=== PATIENT | male | born 1955 | race Caucasian/White ===

== ENCOUNTER 2016-08-14 09:37 | Day surgery (SDC) | payer OTHER ==
[~2016-08-14] VITALS: Ht 175.3 cm; Wt 103.8 kg
[~2016-08-14 09:37] MED LIST: AMLO-147 PO; ASPI-664 PO; GABA-526 PO; HYD25 PO; INSU100C SC; LANT3I SC; METO100T13 PO; PRAV40TA76 PO
[2016-08-14] MEDS ORDERED: DOXAZOSIN MESYLATE (09:57)
[2016-08-14] MEDS ORDERED: PRAVASTATIN SODIUM (09:57)
[2016-08-14] MEDS ORDERED: ASPIRIN (09:57)
[2016-08-14] MEDS ORDERED: LYRICA (09:57)
[2016-08-14] MEDS ORDERED: LISINOPRIL (09:57)
[2016-08-14] MEDS ORDERED: METOPROLOL (09:57)
[2016-08-14] MEDS ORDERED: REPAGLINIDE (09:57)
[2016-08-14] MEDS ORDERED: TOUJEO SOLOSTAR (09:57)
[2016-08-14 10:00] VITALS: Ht 175.3 cm; Wt 103.8 kg
[2016-08-14 10:21] VITALS: BP 111/65; PULSE 58; RESP 18
[2016-08-14 11:05] VITALS: BP 93/58; PULSE 56; RESP 19
[2016-08-14] MEDS ORDERED: MIDAZOLAM 1 MG/ML 2 ML INJ ONE ×2 (11:14)
[2016-08-14] MEDS ORDERED: FENTAnyl 50 MCG/ML VIAL ONE (11:14)
--- NOTE | 2016-08-15 02:56 | GILP ---
DATE OF PROCEDURE: PROCEDURE: Colonoscopy. PREOPERATIVE DIAGNOSIS: Patient presenting with history of no significant GI problems. This is a s creening colonoscopy to rule out colon polyps. POSTOPERATIVE DIAGNOSES: Moderate degree of diverticulosis. No polyps, no carcinoma noted. Minima l external hemorrhoids were noted. DESCRIPTION OF PROCEDURE: After the informed written consent was obtained, the patient was asked to lie on the left lateral side. Intravenous anesthesia was given, which included 3 mg of Versed and 50 mcg of fentanyl. When the patient became somnolent, the Olympus video colonoscope was introduced into the rectum and scope was advanced all the way to the cecum. The entire colon appeared perfect ly normal with no mucosal abnormality except a moderate degree of diverticulosis. They are small in size. No bleeding noted. Endoscope was withdrawn and on the way out, minimal external hemorrhoids were noted and the procedure was terminated. Dictated By: SUDHA NESS/SAIGE Conf#: [id number] DID#: [id number] CC: Davion Vernon;*EndCC*
== END 2016-08-14 11:11 | disposition home or self-care (01) ==
LOC: GIL 09:37
PROVIDERS: ATTEND Internal Medicine Gastroenterology
DX: Z12.11 Encounter for screening for malignant neoplasm of colon (principal); K57.90 Diverticulosis of intestine, part unspecified, without perforation or abscess without bleeding; I10 Essential (primary) hypertension; E11.9 Type 2 diabetes mellitus without complications
CPT/HCPCS: 45378; J2250; J3010

== ENCOUNTER 2018-10-15 15:26 | Inpatient (IN) | payer OTHER ==
[~2018-10-15] VITALS: Ht 175.3 cm; Wt 94.0 kg
[~2018-10-15 15:26] MED LIST changes: -AMLO-147 PO; -ASPI-664 PO; +ASPIRIN; +DOXAZOSIN MESYLATE; -GABA-526 PO; -HYD25 PO; -INSU100C SC; -LANT3I SC; +LISINOPRIL; +LYRICA; -METO100T13 PO; +METOPROLOL; -PRAV40TA76 PO; +PRAVASTATIN SODIUM; +REPAGLINIDE; +TOUJEO SOLOSTAR
--- NOTE | 2018-10-15 18:06 | ERD ---
ER Documentation Chief Complaint Chief Complaint right 2nd toe diabetic ulcer/abcess? HPI The patient is a 62-year-old male with past medical history of diabetes mellitus, diabetic neuropathy, chronic foot wound, hypertension, hyperlipidemia who presents to the emergency department sent in by his straight line press setter Dr.n Hathaway for worsening right toe infection. The patient has a chronic right foot wound of his second digit. He has had dbridements and I&D by his straight line press setter. The wound is worsening ROS All systems reviewed and are negative except as per history of present illness. Medications Home Meds Active Scripts Lactobacillus Rhamnosus* (Culturelle*) 1 Each Cap.sprink, 1 CAP PO BID, #84 CAP Prov:KATEFARRAH Benítez 10/17/18 Amoxicillin* (Amoxicillin*) 500 Mg Cap, 500 MG PO Q8, #120 CAP Prov:KATEFARRAH 10/17/18 Vancomycin/0.9 % Sod Chloride (Vanco 1.5 gm/150 ml-0.9% NaCl) 1.5 Gm/150 Ml Plast..bag, 1.5 GM IV Q24H for 40 Days Prov:KATEFARRAH Benítez 10/17/18 [Vancomycin Iv Per Pharmacy] 1 EA EACH No Conflict Check, 0 EA XX .PER PROTOCOL for 40 Days please do weekly CBC and BMP and fax results to Dr Hathaway . Results may also be reviewed with Patient's PCP Prov:ELANA LOVEWILLIAM Lopez. 10/17/18 Reported Medications Repaglinide* (Repaglinide*) 2 Mg Tablet, 2 MG PO TID for 30 Days, #90 TAKE 1 TABLET BY MOUTH THREE TIMES A DAY WITH MEALS 10/15/18 Pravastatin Sodium* (Pravastatin Sodium*) 40 Mg Tablet, 40 MG PO QHS for 90 Days, #90 TAKE 1 TABLET BY MOUTH AT BEDTIME; 10/15/18 Doxazosin Mesylate* (Doxazosin Mesylate*) 8 Mg Tablet, 8 MG PO DAILY for 90 Days, #90 TAKE 1 TABLET EVERY DAY 10/15/18 Gabapentin* (Gabapentin*) 800 Mg Tablet, 1600 MG PO QHS TAKE 2 TABLETS BY MOUTH AT BEDTIME 10/15/18 Nortriptyline Hcl* (Nortriptyline Hcl*) 50 Mg Capsule, 50 MG PO QHS, TAB 10/15/18 Insulin Glargine,Hum.rec.anlog (Basaglar Kwikpen U-100) 100 Unit/1 Ml Insuln.pen, 50 UNIT SQ QHS INJECT 50 UNITS SUBCUTANEOUSLY EVERY DAY 10/15/18 Aspirin Delayed Release (Aspirin Delayed Release) 81 Mg Tablet.dr, 81 MG PO DAILY for 90 Days, #90 TAKE ONE TABLET ONCE A DAY ORALLY ONCE A DAY 10/15/18 Metoprolol Tartrate* (Lopressor*) 50 Mg Tab, 100 MG PO DAILY for 90 Days, #180 TAKE 1 TABLET BY MOUTH TWICE A DAY 10/15/18 Lisinopril* (Lisinopril*) 40 Mg Tablet, 40 MG PO DAILY for 90 Days, #90 TAKE 1 TABLET BY MOUTH EVERY DAY 10/15/18 Discontinued Reported Medications [Repaglinide] No Conflict Check 08/14/16 [Pravastatin Sodium] No Conflict Check 08/14/16 [Doxazosin Mesylate] No Conflict Check 08/14/16 [Toujeo Solostar] No Conflict Check 08/14/16 [Lyrica] No Conflict Check 08/14/16 [Aspirin] No Conflict Check 08/14/16 [Lisinopril] No Conflict Check 08/14/16 [Metoprolol] No Conflict Check 08/14/16 Allergies Allergies: Coded Allergies: No Known Drug Allergies (Unverified Allergy, Unknown, 10/15/18) PMhx/Soc History of Surgery: No Anesthesia Reaction: No Hx Neurological Disorder: No (NEUROPATHY) Hx Respiratory Disorders: No Hx Cardiac Disorders: Yes (HTN, HYPERLIPIDEMIA) Hx Psychiatric Problems: No Hx Miscellaneous Medical Probl: No Hx Alcohol Use: No Hx Substance Use: No Hx Tobacco Use: No Physical Exam Vitals Physical Exam Const: No acute distress. Head: Atraumatic. Eyes: Normal Conjunctiva. ENT: Normal External Ears, Nose and Mouth. Neck: Full range of motion. No meningismus. Resp: Clear to auscultation bilaterally. Cardio: Regular rate and rhythm. Abd: Soft, non distended, normal bowel sounds, non tender. Skin: No petechiae or rashes. Back: No midline or flank tenderness. Ext: The right second toe is edematous/erythematous with bloody discharge Neur: Awake and alert. No focal deficit Psych: Normal Mood and Affect. Result Diagram: 10/17/18 0802 10/17/18 0802 Results 24 hrs Laboratory Tests Test 10/15/18 19:07 White Blood Count 9.0 10^3/ul Red Blood Count 4.34 10^6/ul Hemoglobin 13.9 g/dl Hematocrit 41.8 % Mean Corpuscular Volume 96.3 fl Mean Corpuscular Hemoglobin 32.0 pg Mean Corpuscular Hemoglobin Concent 33.3 g/dl Red Cell Distribution Width 11.8 % Platelet Count 257 10^3/UL Mean Platelet Volume 9.4 fl Immature Granulocytes % 0.600 % Neutrophils % 72.3 % Lymphocytes % 14.3 % Monocytes % 10.6 % Eosinophils % 1.6 % Basophils % 0.6 % Nucleated Red Blood Cells % 0.0 /100WBC Immature Granulocytes # 0.050 10^3/ul Neutrophils # 6.5 10^3/ul Lymphocytes # 1.3 10^3/ul Monocytes # 1.0 10^3/ul Eosinophils # 0.1 10^3/ul Basophils # 0.1 10^3/ul Nucleated Red Blood Cells # 0.0 10^3/ul Erythrocyte Sedimentation Rate 41 mm/Hr Sodium Level 138 mmol/L Potassium Level 4.2 mmol/L Chloride Level 103 mmol/L Carbon Dioxide Level 26 mmol/L Anion Gap 9 Blood Urea Nitrogen 45 mg/dl Creatinine 1.69 mg/dl Est Glomerular Filtrat Rate mL/min 41 mL/min Glucose Level 190 mg/dl Calcium Level 9.2 mg/dl Total Bilirubin 0.0 mg/dl Direct Bilirubin 0.00 mg/dl Aspartate Amino Transf (AST/SGOT) 71 IU/L Alanine Aminotransferase (ALT/SGPT) 37 IU/L Alkaline Phosphatase 51 IU/L Total Protein 8.0 g/dl Albumin 4.2 g/dl Procedures/[place] [address] Radiology Main Line: [phone] DIAGNOSTIC IMAGING REPORT Patient: GUERO TRAN : 1955 Age: 62 Sex: M MR #: [id number] DOS: 10/15/18 1829 Ordering MD: ADRIANNE CERDA MD Location: E/R Room/Bed: PROCEDURE: XR Foot. CLINICAL INDICATION: pain TECHNIQUE: AP, lateral and oblique views of the right foot was obtained. The images were reviewed on a PACS workstation. COMPARISON: None. FINDINGS: There is an avulsion fracture in the region of the base of the distal phalanx of the second digit. There is associated soft tissue swelling. There is no significant joint space narrowing. Bone mineralization is normal. RPTAT: AA IMPRESSION: Avulsion fracture in the region of the base of the distal phalanx of the second digit with associated soft tissue swelling. The fracture involves the articular surface. .Morgan Lui MD, MD Date Time Electronically viewed and signed by .Morgan Lui MD, on 10/15/2018 19:17 .S/ CC: ADRIANNE CERDA MD [phone] MEDICAL MAKING DECISION: The patient is a 62-year-old male, presenting with right second toe infection and fracture. He was treated with IV antibiotic The differential diagnoses considered include but are not limited to cellulitis, abscess, gangrene, osteomyelitis Departure Diagnosis: Primary Impression: Diabetic ulcer of right foot Additional Impressions: Toe fracture, right Anemia CKD (chronic kidney disease) Condition: Stable Comments I discussed the findings with the patient. I discussed the patient with Dr Cornell , who was made aware of the lab, the treatment, the patient condition. The patient is admitted to [facility] Disclaimer: Inadvertent spelling and grammatical errors are likely due to EHR/dictation software use and do not reflect on the overall quality of patient care. Also, please note that the electronic time recorded on this note does not necessarily reflect the actual time of the patient encounter. ADRIANNE CERDA MD October 15, 2018 18:06
[2018-10-15] MEDS ORDERED: PIPER-TAZO 3.375 GM IV (PMX) 100 ML IVPB ONE (20:00)
[2018-10-15] MEDS ORDERED: VANCOMYCIN 1 GM (PMX) 250 ML IVPB ONE (20:00)
--- NOTE | 2018-10-15 20:53 | HP ---
Date/Time of Note Date/Time of Note DATE: 10/15/18 TIME: 20:53 Assessment/Plan VTE Prophylaxis SCD applied (from Nsg): Yes (Lower extremity) Pharmacological prophylaxis: NA/contraindicated Pharm contraindication: low risk/ambulating Lines/Catheters IV Catheter Type (from Nrsg): Saline Lock Assessment/Plan Hospital Course This is a 62-year-old male being admitted to the [facility] floor for: #1 right second digit infection/fracture: x-ray of the foot shows:Avulsion fracture in the region of the base of the distal phalanx of the second digit with associated soft tissue swelling. The fracture involves the articular surface. Based on the chronicity and appearance of his right toe there is suspicion for possible underlying infection. Will check an MRI to further evaluate. In the meantime we will initiate the patient on vancomycin and Zosyn. Await evaluation from podiatry . We will also order venous and arterial Dopplers bilaterally lower extremities to assess vascularity. #2 chronic right foot wound: Wound care consult, await podiatry recs. Await MRI result. Antibiotics. #3 diabetes mellitus: We will resume patient's home Lantus, insulin sliding scale, check hemoglobin A1c #4 Acute kidney injury versus acute on chronic kidney injury: Did not have a baseline creatinine. Possibly secondary to SINDY inhibitor. Will hold SINDY inhibitor at the current time. Will hydrate the patient with normal saline. renally dose abx. Will monitor renal function. Avoid nephrotoxic agents. Consider nephrology consultation if indicated. Resume SINDY inhibitor once baseline is established. #5 hypertension: Resume patient's home blood pressure medications #6 hyperlipidemia: Check lipid panel, continue statin #7 DVT GI prophylaxis: SCDs to the left lower extremity, no GI prophylaxis indicated Further treatment strategy will be implemented as per the clinical course. Result Diagram: 10/15/18190610/15/187 Results 24hrs Laboratory Tests Test 10/15/18 19:07 White Blood Count 9.0 Red Blood Count 4.34 L Hemoglobin 13.9 L Hematocrit 41.8 L Mean Corpuscular Volume 96.3 Mean Corpuscular Hemoglobin 32.0 Mean Corpuscular Hemoglobin Concent 33.3 Red Cell Distribution Width 11.8 Platelet Count 257 Mean Platelet Volume 9.4 Immature Granulocytes % 0.600 H Neutrophils % 72.3 Lymphocytes % 14.3 L Monocytes % 10.6 Eosinophils % 1.6 Basophils % 0.6 Nucleated Red Blood Cells % 0.0 Immature Granulocytes # 0.050 H Neutrophils # 6.5 Lymphocytes # 1.3 Monocytes # 1.0 H Eosinophils # 0.1 Basophils # 0.1 Nucleated Red Blood Cells # 0.0 Erythrocyte Sedimentation Rate 41 H Sodium Level 138 Potassium Level 4.2 Chloride Level 103 Carbon Dioxide Level 26 Anion Gap 9 Blood Urea Nitrogen 45 H Creatinine 1.69 H Est Glomerular Filtrat Rate mL/min 41 L Glucose Level 190 Calcium Level 9.2 HPI/ROS Admit Date/Time Admit Date/Time Hx of Present Illness Chief complaint: Chronic right second toe infection This is a 62-year-old male with past medical history of diabetes mellitus, diabetic neuropathy, chronic foot wound, hypertension, hyperlipidemia who presents to the emergency department sent in by his nutrition internship for worsening right toe infection. Patient has a chronic right foot wound of his second digit. He has had debridements and I&D by his nutrition internship. His wounds continue to get worse. He was also told he apparently may have an abscess of his right second toe was well and was sent into the emergency department. Patient denies any pain. He denies any fevers. Allergies: NKDA Medications: See Jul Const: As per HPI Eyes : No pain discharge or redness or change in visual acuity ENT: No pain, sore throat, congestion, congestion, dysphagia or discharge Respiratory: No shortness of breath, cough, sputum, wheezing, or pleuritic pain Cardiovascular: No chest pain, palpitation, PND, or edema GI : no change in appetite, abdominal pain, nausea, vomiting, diarrhea, constipation, or change in the color his stool Genitourinary: No dysuria, hematuria, flank pain , discharge or CVA tenderness Musculoskeletal: As per HPI Skin: As per HPI Neuro: No headache, dizziness, syncope, seizure, focal weakness Endocrine: No polyuria, polydipsia, temperature intolerance Psych: No hallucination, depression, anxiety or suicidal ideation PMH/Family/Social Past Medical History Diabetes mellitus with neuropathy, chronic right foot wound tension, hyperlipidemia Medications Current Medications Vancomycin HCl 250 ml @ 125 mls/hr ONCE ONCE IVPB ; Start 10/15/18 at 20:00; Stop 10/15/18 at 21:59 IV Flush (NS 3 ml) 3 ml PER PROTOCOL IV ; Start 10/15/18 at 21:00 Ondansetron HCl (Zofran Inj) 4 mg Q6H PRN IV NAUSEA/VOMITING; Start 10/15/18 at 21:00; Status UNV Acetaminophen (Tylenol Tab) 650 mg Q6H PRN PO .PAIN 1-3 OR TEMP; Start 10/15/18 at 21:00; Status UNV Acetaminophen/ Hydrocodone Bitart ([place] (5/325)) 1 tab Q6H PRN PO .MOD PAIN 4- 6; Start 10/15/18 at 21:00; Status UNV Morphine Sulfate (morphine) 2 mg Q4H PRN IV .SEVERE PAIN 7-10; Start 10/15/18 at 21:00; Status UNV Docusate Sodium (Colace) 100 mg Q12H PRN PO .CONSTIPATION; Start 10/15/18 at 21:00; Status UNV Bisacodyl (Dulcolax) 5 mg DAILY PRN PO .CONSTIPATION; Start 10/15/18 at 21:00; Status UNV Hydralazine HCl (Apresoline) 10 mg Q4H PRN IV ELEVATED BLOOD PRESSURE; Start 10/15/18 at 21:00; Status UNV Coded Allergies: No Known Drug Allergies (Unverified Allergy, Unknown, 10/15/18) Past Surgical History Previous surgical procedure to the bilateral feet Family History Significant Family History: no pertinent family hx Social History Alcohol Use: sober Smoking Status: Never smoker Drug Use: none Exam/Review of Systems Vital Signs Vitals Vital Signs Date Temp Pulse Resp B/P (MAP) Pulse Ox O2 O2 Flow FiO2 Time Delivery Rate 10/15/18 83 19 159/82 98 Room Air 20:30 (107) 10/15/18 98.1 15:30 Exam Exam General: She is a pleasant male currently lying in bed in no acute distress HEENT: Atraumatic, normocephalic. The pupils are equal, round and reactive. Extraocular motor are intact Neck: Supple with full range of motion. No rigidity or meningismus Chest: Nontender Lungs: Clear to auscultation bilaterally no crackles rales or wheezing Heart: Normal S1-S2, Regular rhythm and rate. Abdomen: Obese, soft , nontender, nondistended , bowel sounds are present. No guarding no rebound tenderness , No masses or organomegaly. No costovertebral temporal angle mass Extremities: Right foot second digit: Circumferential wound, with dried blood Neurologic: Normal mental status, speech normal, cranial nerves II through XII are intact, motor and sensory are intact, Additional Comments PROCEDURE: XR Foot. CLINICAL INDICATION: pain TECHNIQUE: AP, lateral and oblique views of the right foot was obtained. The images were reviewed on a PACS workstation. COMPARISON: None. FINDINGS: There is an avulsion fracture in the region of the base of the distal phalanx of the second digit. There is associated soft tissue swelling. There is no significant joint space narrowing. Bone mineralization is normal. RPTAT: AA IMPRESSION: Avulsion fracture in the region of the base of the distal phalanx of the second digit with associated soft tissue swelling. The fracture involves the articular surface. .Morgan Lui MD, MD Date Time Electronically viewed and signed by .Morgan Lui MD, on 10/15/2018 19:17 .S/ CC: ADRIANNE CERDA MD [id number] YUN SHEN October 15, 2018 20:53
[2018-10-15] MEDS ORDERED: BISACODYL (EC) 5 MG TAB PO PRN (21:00)
[2018-10-15] MEDS ORDERED: hydrALAzine 20 MG INJ IV PRN (21:00)
[2018-10-15] MEDS ORDERED: NACL 0.9% 3 ML SYG IV SCH (21:00)
[2018-10-15] MEDS ORDERED: ONDANSETRON 4 MG INJ IV PRN (21:00)
[2018-10-15] MEDS ORDERED: ACETAMINOPHEN 325 MG TAB PO PRN (21:00)
[2018-10-15] MEDS ORDERED: HYDROCODONE/APAP (5/325) TAB PO PRN (21:00)
[2018-10-15] MEDS ORDERED: morphine 2 MG INJ IV PRN (21:00)
[2018-10-15] MEDS ORDERED: DOCUSATE SODIUM 100 MG CAP PO PRN (21:00)
[2018-10-15 23:33] VITALS: Ht 175.3 cm; Wt 94.0 kg
[2018-10-15] MEDS ORDERED: LISI40TA3 PO (23:54)
[2018-10-15] MEDS ORDERED: REPA2TAB8 PO (23:54)
[2018-10-15] MEDS ORDERED: PRAV40TA76 PO (23:54)
[2018-10-15] MEDS ORDERED: NORT50CA PO (23:54)
[2018-10-15] MEDS ORDERED: ASPI-1044 PO (23:54)
[2018-10-15] MEDS ORDERED: DOXA8TAB65 PO (23:54)
[2018-10-15] MEDS ORDERED: METO-429 PO (23:54)
[2018-10-15] MEDS ORDERED: GABA-528 PO (23:54)
[2018-10-15] MEDS ORDERED: INSU100I33 SQ (23:54)
[2018-10-16 00:11] VITALS: BP 165/81; PULSE 79; RESP 18
[2018-10-16 08:00] VITALS: BP 124/76; PULSE 72; RESP 18
[2018-10-16] MEDS ORDERED: VANCOMYCIN IV PER PHARMACY XX SCH (08:00)
[2018-10-16] MEDS ORDERED: LIDOCAINE 1% (MPF) 5 ML VIAL SC ONE (09:00)
[2018-10-16] MEDS ORDERED: LISINOPRIL 20 MG TAB PO SCH (09:00)
[2018-10-16] MEDS: PIPER-TAZO 3.375 GM IV (PMX) 100 ML IVPB SCH ×3 (10:22→20:08)
[2018-10-16] MEDS: METOPROLOL 50 MG TAB PO SCH (10:23)
[2018-10-16] MEDS: DOXAZOSIN 4 MG TAB PO SCH (11:57)
[2018-10-16] MEDS: VANCOMYCIN HCL 1.5 GM in SOD CHLORIDE 0.9% 250 ML IVPB SCH (11:57)
--- NOTE | 2018-10-16 12:57 | CONS ---
Assessment/Plan Assessment/Plan Hospital Course (Demo Recall) Right 2nd toe ulcer OM of right second toe Plan: Changed dressing using SSD cream gauze and cling Cont IV antibiotics [place] Reviewed all imaging studies. MRI results- OM of right 2nd toe Per podiatry pt can be discharged with PICC line of antibiotics for 6-8 weeks Will follow up with pt in the office next week Consultation Date/Type/Reason Admit Date/Time Date of Consultation: October 16, 2018 Type of Consult Podiatry consult Reason for Consultation Right 2nd toe ulcer/ OM Date/Time of Note DATE: 10/16/18 TIME: 12:44 Hx of Present Illness Pt has been following up with me for right 2nd toe ulcer. On 10/15/18 I have sent pt to ER to be admitted for possible abscess and OM of right 2nd toe. Pt was on antibiotics Past Medical History Home Meds Reported Medications Repaglinide* (Repaglinide*) 2 Mg Tablet, 2 MG PO TID for 30 Days, #90 TAKE 1 TABLET BY MOUTH THREE TIMES A DAY WITH MEALS 10/15/18 Pravastatin Sodium* (Pravastatin Sodium*) 40 Mg Tablet, 40 MG PO QHS for 90 Days, #90 TAKE 1 TABLET BY MOUTH AT BEDTIME; 10/15/18 Doxazosin Mesylate* (Doxazosin Mesylate*) 8 Mg Tablet, 8 MG PO DAILY for 90 Days, #90 TAKE 1 TABLET EVERY DAY 10/15/18 Gabapentin* (Gabapentin*) 800 Mg Tablet, 1600 MG PO QHS TAKE 2 TABLETS BY MOUTH AT BEDTIME 10/15/18 Nortriptyline Hcl* (Nortriptyline Hcl*) 50 Mg Capsule, 50 MG PO QHS, TAB 10/15/18 Insulin Glargine,Hum.rec.anlog (Basaglar Kwikpen U-100) 100 Unit/1 Ml Insuln.pen, 50 UNIT SQ QHS INJECT 50 UNITS SUBCUTANEOUSLY EVERY DAY 10/15/18 Aspirin Delayed Release (Aspirin Delayed Release) 81 Mg Tablet.dr, 81 MG PO DAILY for 90 Days, #90 TAKE ONE TABLET ONCE A DAY ORALLY ONCE A DAY 10/15/18 Metoprolol Tartrate* (Lopressor*) 50 Mg Tab, 100 MG PO DAILY for 90 Days, #180 TAKE 1 TABLET BY MOUTH TWICE A DAY 10/15/18 Lisinopril* (Lisinopril*) 40 Mg Tablet, 40 MG PO DAILY for 90 Days, #90 TAKE 1 TABLET BY MOUTH EVERY DAY 10/15/18 Discontinued Reported Medications [Repaglinide] No Conflict Check 08/14/16 [Pravastatin Sodium] No Conflict Check 08/14/16 [Doxazosin Mesylate] No Conflict Check 08/14/16 [Toujeo Solostar] No Conflict Check 08/14/16 [Lyrica] No Conflict Check 08/14/16 [Aspirin] No Conflict Check 08/14/16 [Lisinopril] No Conflict Check 08/14/16 [Metoprolol] No Conflict Check 08/14/16 Medications Current Medications IV Flush (NS 3 ml) 3 ml PER PROTOCOL IV ; Start 10/15/18 at 21:00 Ondansetron HCl (Zofran Inj) 4 mg Q6H PRN IV NAUSEA/VOMITING; Start 10/15/18 at 21:00 Acetaminophen (Tylenol Tab) 650 mg Q6H PRN PO .PAIN 1-3 OR TEMP; Start 10/15/18 at 21:00 Acetaminophen/ Hydrocodone Bitart ([place] (5/325)) 1 tab Q6H PRN PO .MOD PAIN 4- 6; Start 10/15/18 at 21:00 Morphine Sulfate (morphine) 2 mg Q4H PRN IV .SEVERE PAIN 7-10; Start 10/15/18 at 21:00 Docusate Sodium (Colace) 100 mg Q12H PRN PO .CONSTIPATION; Start 10/15/18 at 21:00 Bisacodyl (Dulcolax) 5 mg DAILY PRN PO .CONSTIPATION; Start 10/15/18 at 21:00 Hydralazine HCl (Apresoline) 10 mg Q4H PRN IV ELEVATED BLOOD PRESSURE; Start 10/15/18 at 21:00 Vancomycin HCl (Vanco Iv Per Pharmacy) VANCOMYCIN PER PHARMACY PER PROTOCOL XX ; Start 10/16/18 at 08:00 Piperacillin Sod/ Tazobactam Sod 100 ml @ 200 mls/hr Q6 IVPB Last administered on 10/16/18at 10:22; Admin Dose 200 MLS/HR; Start 10/16/18 at 09:00 Vancomycin HCl 1.5 gm/Sodium Chloride 250 ml @ 83.333 mls/ hr Q24H IVPB Last administered on 10/16/18at 11:57; Admin Dose 83.333 MLS/HR; Start 10/16/18 at 10:00 Gabapentin (Neurontin) 1,600 mg QHS PO ; Start 10/16/18 at 21:00 Insulin Glargine (Lantus) 50 units QHS SC ; Start 10/16/18 at 21:00 Metoprolol Tartrate (Lopressor) 100 mg DAILY PO Last administered on 10/16/18at 10:23; Admin Dose 100 MG; Start 10/16/18 at 09:00 Atorvastatin Calcium (Lipitor) 10 mg DAILY@21 PO ; Start 10/16/18 at 21:00 Doxazosin Mesylate (Cardura) 8 mg DAILY PO Last administered on 10/16/18at 1 1:57; Admin Dose 8 MG; Start 10/16/18 at 10:00 Nortriptyline HCl (Aventyl) 50 mg QHS PO ; Start 10/16/18 at 21:00 Allergies: Coded Allergies: No Known Drug Allergies (Unverified Allergy, Unknown, 10/15/18) Social History Alcohol Use: sober Smoking Status: Never smoker Drug Use: none Exam/Review of Systems Exam Vitals Vital Signs Date Temp Pulse Resp B/P (MAP) Pulse Ox O2 O2 Flow FiO2 Time Delivery Rate 10/16/18 98.0 72 18 124/76 94 Room Air 08:00 (92) Intake and Output 10/15/18 10/15/18 10/16/18 1414:59 22:59 06:59 IntakeIntake Total 100 ml BalanceBalance 100 ml Exam Vascular : DP/PT 1/4 B/L , CFT<3SEC all digits TG WNL Neuro- dec light touch sensation Derm- right 2nd toe erythema, edema with ulcer distal toe measuring [id number] improved since yesterday no active drainage, minimal yperkeratotic lesion overlying it. no malodor MSK- no pain on palpation of right 2nd toe Results Result Diagram: 10/16/18 0554 10/16/18 0554 Results 24hrs Laboratory Tests Test 10/15/18 19:07 10/16/18 05:54 White Blood Count 9.0 9.3 Red Blood Count 4.34 L 4.05 L Hemoglobin 13.9 L 12.9 L Hematocrit 41.8 L 39.0 L Mean Corpuscular Volume 96.3 96.3 Mean Corpuscular Hemoglobin 32.0 31.9 Mean Corpuscular Hemoglobin Concent 33.3 33.1 Red Cell Distribution Width 11.8 11.6 Platelet Count 257 249 Mean Platelet Volume 9.4 10.0 Immature Granulocytes % 0.600 H 0.600 H Neutrophils % 72.3 74.5 Lymphocytes % 14.3 L 10.5 L Monocytes % 10.6 11.8 H Eosinophils % 1.6 2.0 Basophils % 0.6 0.6 Nucleated Red Blood Cells % 0.0 0.0 Immature Granulocytes # 0.050 H 0.060 H Neutrophils # 6.5 6.9 Lymphocytes # 1.3 1.0 Monocytes # 1.0 H 1.1 H Eosinophils # 0.1 0.2 Basophils # 0.1 0.1 Nucleated Red Blood Cells # 0.0 0.0 Erythrocyte Sedimentation Rate 41 H 50 H Sodium Level 138 140 Potassium Level 4.2 4.4 Chloride Level 103 105 Carbon Dioxide Level 26 29 Anion Gap 9 6 Blood Urea Nitrogen 45 H 42 H Creatinine 1.69 H 1.62 H Est Glomerular Filtrat Rate mL/min 41 L 43 L Glucose Level 190 110 # Calcium Level 9.2 9.0 Total Bilirubin 0.0 L 0.5 Direct Bilirubin 0.00 0.00 Aspartate Amino Transf (AST/SGOT) 71 H 27 # Alanine Aminotransferase (ALT/SGPT) 37 34 Alkaline Phosphatase 51 43 Total Protein 8.0 6.9 # Albumin 4.2 3.7 Prothrombin Time 14.4 Prothrombin Time Ratio 1.1 INR International Normalized Ratio 1.11 Activated Partial Thromboplast Time 39.3 H Hemoglobin A1c 7.3 H Magnesium Level 2.2 Indirect Bilirubin 0.5 Globulin 3.20 Albumin/Globulin Ratio 1.15 Triglycerides Level 97 Cholesterol Level 111 LDL Cholesterol, Calculated 68 HDL Cholesterol 24 L Cholesterol/HDL Ratio 4.6 Thyroid Stimulating Hormone (TSH) 2.510 Medications Medication Current Medications IV Flush (NS 3 ml) 3 ml PER PROTOCOL IV ; Start 10/15/18 at 21:00 Ondansetron HCl (Zofran Inj) 4 mg Q6H PRN IV NAUSEA/VOMITING; Start 10/15/18 at 21:00 Acetaminophen (Tylenol Tab) 650 mg Q6H PRN PO .PAIN 1-3 OR TEMP; Start 10/15/18 at 21:00 Acetaminophen/ Hydrocodone Bitart ([place] (5/325)) 1 tab Q6H PRN PO .MOD PAIN 4- 6; Start 10/15/18 at 21:00 Morphine Sulfate (morphine) 2 mg Q4H PRN IV .SEVERE PAIN 7-10; Start 10/15/18 at 21:00 Docusate Sodium (Colace) 100 mg Q12H PRN PO .CONSTIPATION; Start 10/15/18 at 21:00 Bisacodyl (Dulcolax) 5 mg DAILY PRN PO .CONSTIPATION; Start 10/15/18 at 21:00 Hydralazine HCl (Apresoline) 10 mg Q4H PRN IV ELEVATED BLOOD PRESSURE; Start 10/15/18 at 21:00 Vancomycin HCl (Vanco Iv Per Pharmacy) VANCOMYCIN PER PHARMACY PER PROTOCOL XX ; Start 10/16/18 at 08:00 Piperacillin Sod/ Tazobactam Sod 100 ml @ 200 mls/hr Q6 IVPB Last administered on 10/16/18at 10:22; Admin Dose 200 MLS/HR; Start 10/16/18 at 09:00 Vancomycin HCl 1.5 gm/Sodium Chloride 250 ml @ 83.333 mls/ hr Q24H IVPB Last administered on 10/16/18at 11:57; Admin Dose 83.333 MLS/HR; Start 10/16/18 at 10:00 Gabapentin (Neurontin) 1,600 mg QHS PO ; Start 10/16/18 at 21:00 Insulin Glargine (Lantus) 50 units QHS SC ; Start 10/16/18 at 21:00 Metoprolol Tartrate (Lopressor) 100 mg DAILY PO Last administered on 10/16/18at 10:23; Admin Dose 100 MG; Start 10/16/18 at 09:00 Atorvastatin Calcium (Lipitor) 10 mg DAILY@21 PO ; Start 10/16/18 at 21:00 Doxazosin Mesylate (Cardura) 8 mg DAILY PO Last administered on 10/16/18at 11:57; Admin Dose 8 MG; Start 10/16/18 at 10:00 Nortriptyline HCl (Aventyl) 50 mg QHS PO ; Start 10/16/18 at 21:00 AMARILIS ZUNIGA DPM October 16, 2018 12:56
[2018-10-16 14:00] VITALS: BP 116/68; PULSE 78; RESP 18
--- NOTE | 2018-10-16 16:19 | PN ---
Date/Time of Note Date/Time of Note DATE: 10/16/18 TIME: 16:11 Assessment/Plan VTE Prophylaxis Risk score (from Ns)>0 risk: 3 SCD applied (from Ns): Yes (Lower extremity) Pharmacological prophylaxis: NA/contraindicated Pharm contraindication: low risk/ambulating Lines/Catheters IV Catheter Type (from Nrs): Peripheral IV Assessment/Plan Hospital Course Subjective: No new complaints, we discussed the plan of care Objective: Constitutional: alert, oriented, conversant, no distress Head: atraumatic, normocephalic Neck: non-tender, supple Respiratory: clear to auscultation Cardiovascular: regular rate and rhythm Gastrointestinal: S/ NT / ND / +BS Extremities: Right middle toe is visibly inflamed with ulcer and minimal oozing. Apparently there was some cellulitis tracking to the foot itself, but this seems to have improved, Assessment and plan: 1 AM now getting chemo 62-year-old male who was sent to us from his outpatient rn hedis office because of cellulitis and diabetic ulcer on the right second toe that seems to have failed outpatient therapy. Currently managed as follows: 1. Right second toe ulcer cellulitis with confirmed osteomyelitis per rn hedis -Patient did not do well on oral therapy so far, rn hedis is recommending intravenous therapy. -Cultures are pending -Patient is planned for central line placement today, once cultures available we will know final antibiotic regimen. 2. 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 Diabetes mellitus type 2 -Hemoglobin A1c came back 7.3 -Continue hypoglycemics and titrate as indicated 4. Dyslipidemia with low HDL: -Continue home statin 5. Hypertension: -Patient currently on good control on metoprolol and lisinopril 6. History of depression stable on nortriptyline 7. Chronic normocytic anemia: Stable no Dispo: -Patient is going to be discharged on IV antibiotics per podiatry recommenda tions, follow-up final cultures and consider ID consult for final recommendations. . Result Diagram: 10/16/18 0554 10/16/18 0554 Results 24hrs Laboratory Tests Test 10/15/18 19:07 10/16/18 05:54 White Blood Count 9.0 9.3 Red Blood Count 4.34 L 4.05 L Hemoglobin 13.9 L 12.9 L Hematocrit 41.8 L 39.0 L Mean Corpuscular Volume 96.3 96.3 Mean Corpuscular Hemoglobin 32.0 31.9 Mean Corpuscular Hemoglobin Concent 33.3 33.1 Red Cell Distribution Width 11.8 11.6 Platelet Count 257 249 Mean Platelet Volume 9.4 10.0 Immature Granulocytes % 0.600 H 0.600 H Neutrophils % 72.3 74.5 Lymphocytes % 14.3 L 10.5 L Monocytes % 10.6 11.8 H Eosinophils % 1.6 2.0 Basophils % 0.6 0.6 Nucleated Red Blood Cells % 0.0 0.0 Immature Granulocytes # 0.050 H 0.060 H Neutrophils # 6.5 6.9 Lymphocytes # 1.3 1.0 Monocytes # 1.0 H 1.1 H Eosinophils # 0.1 0.2 Basophils # 0.1 0.1 Nucleated Red Blood Cells # 0.0 0.0 Erythrocyte Sedimentation Rate 41 H 50 H Sodium Level 138 140 Potassium Level 4.2 4.4 Chloride Level 103 105 Carbon Dioxide Level 26 29 Anion Gap 9 6 Blood Urea Nitrogen 45 H 42 H Creatinine 1.69 H 1.62 H Est Glomerular Filtrat Rate mL/min 41 L 43 L Glucose Level 190 110 # Calcium Level 9.2 9.0 Total Bilirubin 0.0 L 0.5 Direct Bilirubin 0.00 0.00 Aspartate Amino Transf (AST/SGOT) 71 H 27 # Alanine Aminotransferase (ALT/SGPT) 37 34 Alkaline Phosphatase 51 43 Total Protein 8.0 6.9 # Albumin 4.2 3.7 Prothrombin Time 14.4 Prothrombin Time Ratio 1.1 INR International Normalized Ratio 1.11 Activated Partial Thromboplast Time 39.3 H Hemoglobin A1c 7.3 H Magnesium Level 2.2 Indirect Bilirubin 0.5 Globulin 3.20 Albumin/Globulin Ratio 1.15 Triglycerides Level 97 Cholesterol Level 111 LDL Cholesterol, Calculated 68 HDL Cholesterol 24 L Cholesterol/HDL Ratio 4.6 Thyroid Stimulating Hormone (TSH) 2.510 Exam/Review of Systems Exam Vitals Vital Signs Date Temp Pulse Resp B/P (MAP) Pulse Ox O2 O2 Flow FiO2 Time Delivery Rate 10/16/18 98.1 78 18 116/68 95 Room Air 14:00 (84) Intake and Output 10/15/18 10/15/18 10/16/18 1515:00 23:00 07:00 IntakeIntake Total 100 ml BalanceBalance 100 ml Results Results 24hrs Laboratory Tests Test 10/15/18 19:07 10/16/18 05:54 White Blood Count 9.0 9.3 Red Blood Count 4.34 L 4.05 L Hemoglobin 13.9 L 12.9 L Hematocrit 41.8 L 39.0 L Mean Corpuscular Volume 96.3 96.3 Mean Corpuscular Hemoglobin 32.0 31.9 Mean Corpuscular Hemoglobin Concent 33.3 33.1 Red Cell Distribution Width 11.8 11.6 Platelet Count 257 249 Mean Platelet Volume 9.4 10.0 Immature Granulocytes % 0.600 H 0.600 H Neutrophils % 72.3 74.5 Lymphocytes % 14.3 L 10.5 L Monocytes % 10.6 11.8 H Eosinophils % 1.6 2.0 Basophils % 0.6 0.6 Nucleated Red Blood Cells % 0.0 0.0 Immature Granulocytes # 0.050 H 0.060 H Neutrophils # 6.5 6.9 Lymphocytes # 1.3 1.0 Monocytes # 1.0 H 1.1 H Eosinophils # 0.1 0.2 Basophils # 0.1 0.1 Nucleated Red Blood Cells # 0.0 0.0 Erythrocyte Sedimentation Rate 41 H 50 H Sodium Level 138 140 Potassium Level 4.2 4.4 Chloride Level 103 105 Carbon Dioxide Level 26 29 Anion Gap 9 6 Blood Urea Nitrogen 45 H 42 H Creatinine 1.69 H 1.62 H Est Glomerular Filtrat Rate mL/min 41 L 43 L Glucose Level 190 110 # Calcium Level 9.2 9.0 Total Bilirubin 0.0 L 0.5 Direct Bilirubin 0.00 0.00 Aspartate Amino Transf (AST/SGOT) 71 H 27 # Alanine Aminotransferase (ALT/SGPT) 37 34 Alkaline Phosphatase 51 43 Total Protein 8.0 6.9 # Albumin 4.2 3.7 Prothrombin Time 14.4 Prothrombin Time Ratio 1.1 INR International Normalized Ratio 1.11 Activated Partial Thromboplast Time 39.3 H Hemoglobin A1c 7.3 H Magnesium Level 2.2 Indirect Bilirubin 0.5 Globulin 3.20 Albumin/Globulin Ratio 1.15 Triglycerides Level 97 Cholesterol Level 111 LDL Cholesterol, Calculated 68 HDL Cholesterol 24 L Cholesterol/HDL Ratio 4.6 Thyroid Stimulating Hormone (TSH) 2.510 Medications Medication Current Medications IV Flush (NS 3 ml) 3 ml PER PROTOCOL IV ; Start 10/15/18 at 21:00 Ondansetron HCl (Zofran Inj) 4 mg Q6H PRN IV NAUSEA/VOMITING; Start 10/15/18 at 21:00 Acetaminophen (Tylenol Tab) 650 mg Q6H PRN PO .PAIN 1-3 OR TEMP; Start 10/15/18 at 21:00 Acetaminophen/ Hydrocodone Bitart (Pelham (5/325)) 1 tab Q6H PRN PO .MOD PAIN 4- 6; Start 10/15/18 at 21:00 Morphine Sulfate (morphine) 2 mg Q4H PRN IV .SEVERE PAIN 7-10; Start 10/15/18 at 21:00 Docusate Sodium (Colace) 100 mg Q12H PRN PO .CONSTIPATION; Start 10/15/18 at 21:00 Bisacodyl (Dulcolax) 5 mg DAILY PRN PO .CONSTIPATION; Start 10/15/18 at 21:00 Hydralazine HCl (Apresoline) 10 mg Q4H PRN IV ELEVATED BLOOD PRESSURE; Start 10/15/18 at 21:00 Vancomycin HCl (Vanco Iv Per Pharmacy) VANCOMYCIN PER PHARMACY PER PROTOCOL XX ; Start 10/16/18 at 08:00 Piperacillin Sod/ Tazobactam Sod 100 ml @ 200 mls/hr Q6 IVPB Last administered on 10/16/18at 15:46; Admin Dose 200 MLS/HR; Start 10/16/18 at 09:00 Vancomycin HCl 1.5 gm/Sodium Chloride 250 ml @ 83.333 mls/ hr Q24H IVPB Last administered on 10/16/18at 11:57; Admin Dose 83.333 MLS/HR; Start 10/16/18 at 10:00 Gabapentin (Neurontin) 1,600 mg QHS PO ; Start 10/16/18 at 21:00 Insulin Glargine (Lantus) 50 units QHS SC ; Start 10/16/18 at 21:00 Metoprolol Tartrate (Lopressor) 100 mg DAILY PO Last administered on 10/16/18at 10:23; Admin Dose 100 MG; Start 10/16/18 at 09:00 Atorvastatin Calcium (Lipitor) 10 mg DAILY@21 PO ; Start 10/16/18 at 21:00 Doxazosin Mesylate (Cardura) 8 mg DAILY PO Last administered on 10/16/18at 11:57; Admin Dose 8 MG; Start 10/16/18 at 10:00 Nortriptyline HCl (Aventyl) 50 mg QHS PO ; Start 10/16/18 at 21:00 FARRAH LOVE October 16, 2018 16:18
[2018-10-16] MEDS ORDERED: GLUCOSE GEL 15 GRAM TUBE PO PRN ×2 (20:00)
[2018-10-16] MEDS ORDERED: GLUCOSE GEL 15 GRAM TUBE BUCCAL PRN (20:00)
[2018-10-16] MEDS ORDERED: GLUCAGON 1 MG INJ IM PRN (20:00)
[2018-10-16] MEDS ORDERED: DEXTROSE 50% 50 ML SYRINGE IV PRN ×2 (20:00)
[2018-10-16 20:21] VITALS: BP 140/72; PULSE 81; RESP 18
[2018-10-16] MEDS ORDERED: INSULIN GLARGINE [LANTus] (100 UNITS/ML) SYG SC SCH ×2 (21:00)
[2018-10-16] MEDS ORDERED: ATORVASTATIN 10 MG TAB PO SCH (21:00)
[2018-10-16] MEDS ORDERED: NORTRIPTYLINE 25 MG CAP PO SCH (21:00)
[2018-10-16] MEDS ORDERED: GABAPENTIN 400 MG CAP PO SCH (21:00)
[2018-10-16] MEDS ORDERED: NORTRIPTYLINE 50 MG CAP PO SCH (21:00)
[2018-10-17] MEDS: PIPER-TAZO 3.375 GM IV (PMX) 100 ML IVPB SCH ×4 (00:34→17:17)
[2018-10-17 02:32] VITALS: BP 105/54; PULSE 67; RESP 18
[2018-10-17 07:57] VITALS: BP 148/78; PULSE 69; RESP 18
[2018-10-17] MEDS: DOXAZOSIN 4 MG TAB PO SCH (08:34)
[2018-10-17] MEDS: METOPROLOL 50 MG TAB PO SCH (08:35)
[2018-10-17] MEDS: VANCOMYCIN HCL 1.5 GM in SOD CHLORIDE 0.9% 250 ML IVPB SCH (10:16)
--- NOTE | 2018-10-17 13:13 | PDOCDIS ---
Discharge Instructions CONDITION [id number] Patient Condition: [id number] Stable HOME CARE INSTRUCTIONS: [id number] Diet Instructions: [id number] Low Fat /Cholesterol [id number] Special Diet: Vzyio9y ACTIVITY: [id number] Activity Restrictions: [id number] Slowly Increase Activity Rest between Activity FOLLOW UP/APPOINTMENTS Follow-up Plan Name, Degree : Alma Hathaway DPM Specialty : Podiatry Comments Office Address : [address] [place] [address] [address] [place] [id number] Office Office * Stay in close contact wth your Art Class Model while on home IV antibiotics * You should be getting weekly labs to monitor your renal function, please make sure of this * Make sure your home health nurse notifies your PCP or director of land acquisition about your labs * See your room service runner regularly for continued wound care * Take your diabetic meds regularly and maintain a diabetic diet to facilitate good wound healing * Speak to your home health nurse or call the room service runner or your PCP if you have any further questions . FARRAH LOVE October 17, 2018 13:13
[2018-10-17] MEDS ORDERED: VANC1.5P16 IV (13:18)
[2018-10-17] MEDS ORDERED: LACT1CAP57 PO (13:18)
[2018-10-17] MEDS ORDERED: AMOX500C2 PO (13:18)
[2018-10-17] MEDS ORDERED: Vancomycin Iv Per Pharmacy XX (13:18)
--- NOTE | 2018-10-17 13:29 | DS ---
Date/Time of Note Date/Time of Note DATE: 10/17/18 TIME: 13:26 Discharge Summary Admission/Discharge Info Admit Date/Time October 15, 2018 at 19:53 Discharge Date/Time Discharge Diagnosis 62-year-old male who was sent to us from his outpatient manager metal office because of cellulitis and diabetic ulcer on the right second toe that seems to have failed outpatient therapy. Currently managed as follows: 1. Right second toe ulcer cellulitis with confirmed osteomyelitis per manager metal failed o/p tx -Patient did not do well on oral therapy so far, manager metal is recommending intravenous therapy. -Cultures grew staph aureus and alpha hemolytic strep -abx for 6 weeks and aggressive wound care 2. 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 Diabetes mellitus type 2 -Hemoglobin A1c came back 7.3 -continue regimen 4. Dyslipidemia with low HDL: -Continue home statin 5. Hypertension: -Patient currently on good control on metoprolol and lisinopril 6. History of depression stable on nortriptyline 7. Chronic normocytic anemia: Stable Patient Condition: Stable Hospital Course 62-year-old male who was sent to the hospital for inpatient work-up and IV antibiotics for cellulitis and diabetic toe ulcer that was not responding to outpatient therapy. Patient was managed for the medical problems outlined above. Once cultures came back, patient was discharged on appropriate antibiotics via oral as well as intravenous route as recommended by his manager metal. . Home Meds Active Scripts Lactobacillus Rhamnosus* (Culturelle*) 1 Each Cap.sprink, 1 CAP PO BID, #84 CAP Prov:FARRAH LOVE 10/17/18 Amoxicillin* (Amoxicillin*) 500 Mg Cap, 500 MG PO Q8, #120 CAP Prov:KATEFARRAH Benítez 10/17/18 Vancomycin/0.9 % Sod Chloride (Vanco 1.5 gm/150 ml-0.9% NaCl) 1.5 Gm/150 Ml Plast..bag, 1.5 GM IV Q24H for 40 Days Prov:KATEFARRAH Benítez 10/17/18 [Vancomycin Iv Per Pharmacy] 1 EA EACH No Conflict Check, 0 EA XX .PER PROTOCOL for 40 Days please do weekly CBC and BMP and fax results to Dr Hathaway . Results may also be reviewed with Patient's PCP Prov:KATEFARRAH Benítez 10/17/18 Reported Medications Repaglinide* (Repaglinide*) 2 Mg Tablet, 2 MG PO TID for 30 Days, #90 TAKE 1 TABLET BY MOUTH THREE TIMES A DAY WITH MEALS 10/15/18 Pravastatin Sodium* (Pravastatin Sodium*) 40 Mg Tablet, 40 MG PO QHS for 90 Days, #90 TAKE 1 TABLET BY MOUTH AT BEDTIME; 10/15/18 Doxazosin Mesylate* (Doxazosin Mesylate*) 8 Mg Tablet, 8 MG PO DAILY for 90 Days, #90 TAKE 1 TABLET EVERY DAY 10/15/18 Gabapentin* (Gabapentin*) 800 Mg Tablet, 1600 MG PO QHS TAKE 2 TABLETS BY MOUTH AT BEDTIME 10/15/18 Nortriptyline Hcl* (Nortriptyline Hcl*) 50 Mg Capsule, 50 MG PO QHS, TAB 10/15/18 Insulin Glargine,Hum.rec.anlog (Basaglar Kwikpen U-100) 100 Unit/1 Ml Insuln.pen, 50 UNIT SQ QHS INJECT 50 UNITS SUBCUTANEOUSLY EVERY DAY 10/15/18 Aspirin Delayed Release (Aspirin Delayed Release) 81 Mg Tablet.dr, 81 MG PO DAILY for 90 Days, #90 TAKE ONE TABLET ONCE A DAY ORALLY ONCE A DAY 10/15/18 Metoprolol Tartrate* (Lopressor*) 50 Mg Tab, 100 MG PO DAILY for 90 Days, #180 TAKE 1 TABLET BY MOUTH TWICE A DAY 10/15/18 Lisinopril* (Lisinopril*) 40 Mg Tablet, 40 MG PO DAILY for 90 Days, #90 TAKE 1 TABLET BY MOUTH EVERY DAY 10/15/18 Discontinued Reported Medications [Repaglinide] No Conflict Check 08/14/16 [Pravastatin Sodium] No Conflict Check 08/14/16 [Doxazosin Mesylate] No Conflict Check 08/14/16 [Toujeo Solostar] No Conflict Check 08/14/16 [Lyrica] No Conflict Check 08/14/16 [Aspirin] No Conflict Check 08/14/16 [Lisinopril] No Conflict Check 08/14/16 [Metoprolol] No Conflict Check 08/14/16 Follow-up Plan Name, Degree : Alma Hathaway DPM Specialty : Podiatry Comments Office Address : [address] [facility] [id number] [place] [id number] Office Office * Stay in close contact wth your Clinical Care Leader while on home IV antibiotics * You should be getting weekly labs to monitor your renal function, please make sure of this * Make sure your home health nurse notifies your PCP or hydrate thickener operator about your labs * See your manager metal regularly for continued wound care * Take your diabetic meds regularly and maintain a diabetic diet to facilitate good wound healing * Speak to your home health nurse or call the manager metal or your PCP if you have any further questions . Primary Care Provider Not On Staff Doctor Time spent on discharge: > 30 minutes Pending Labs Laboratory Tests Test 10/16/18 20:17 10/17/18 08:02 10/17/18 08:46 10/17/18 12:07 Bedside 237 113 179 Glucose mg/dL (70-220) mg/dL (70-220) mg/dL (70-220) White Blood 7.1 Count 10^3/ul (4.8-1 0.8) Red Blood 4.25 Count 10^6/ul (4.70- 6.10) Hemoglobin 13.4 g/dl (14.0-18. 0) Hematocrit 41.1 % (42.0-52.0) Mean 96.7 Corpuscular fl (82.0-101.0 Volume ) Mean 31.5 Corpuscular pg (29.0-33.0) Hemoglobin Mean 32.6 Corpuscular g/dl (32.0-37. Hemoglobin Conc 0) ent Red Cell 11.9 Distribution % (11.5-14.5) Width Platelet Count 250 10^3/UL (140-4 15) Mean Platelet 10.2 Volume fl (7.4-10.4) Immature 0.700 Granulocytes % % (0.001-0.429 ) Neutrophils % 67.6 % (39.0-77.0) Lymphocytes % 15.3 % (15.0-51.0) Monocytes % 13.3 % (0.0-11.0) Eosinophils % 2.3 % (0.0-7.0) Basophils % 0.8 % (0.0-2.0) Nucleated Red 0.0 Blood Cells % /100WBC (0.0-0 .0) Immature 0.050 Granulocytes # 10^3/ul (0.0-0 .031) Neutrophils # 4.8 10^3/ul (1.6-7 .5) Lymphocytes # 1.1 10^3/ul (0.8-2 .9) Monocytes # 0.9 10^3/ul (0.3-0 .9) Eosinophils # 0.2 10^3/ul (0.0-0 .5) Basophils # 0.1 10^3/ul (0.0-0 .1) Nucleated Red 0.0 Blood Cells # 10^3/ul (0.0-0 .0) Sodium Level 140 mmol/L (135-14 4) Potassium 4.5 Level mmol/L (3.5-5. 1) Chloride Level 105 mmol/L (97-110 ) Carbon Dioxide 29 Level mmol/L (21-31) Anion Gap 6 (5-13) Blood Urea 35 Nitrogen mg/dl (7-20) Creatinine 1.55 mg/dl (0.61-1. 24) Est Glomerular 45 Filtrat mL/min (>60) Rate mL/min Glucose Level 105 mg/dl (70-220) Calcium Level 8.8 mg/dl (8.4-10. 2) Total 0.5 Bilirubin mg/dl (0.2-1.3 ) Direct 0.00 Bilirubin mg/dl (0.00-0. 20) Indirect 0.5 Bilirubin mg/dl (0-1.1) Aspartate Amino 25 Transf (AST/SGO IU/L (15-46) T) Alanine 29 Aminotransferas IU/L (13-69) e (ALT/SGPT) Alkaline 41 Phosphatase IU/L (42-121) Total Protein 7.1 g/dl (6.1-8.1) Albumin 3.5 g/dl (3.3-4.9) Globulin 3.60 g/dl (1.3-3.2) Albumin/Globuli 0.97 n Ratio FARRAH LOVE October 17, 2018 13:29
[2018-10-17 14:00] VITALS: BP 145/78; PULSE 72; RESP 18
[2018-10-17 19:52] VITALS: BP 163/86; PULSE 64; RESP 18
== END 2018-10-17 19:56 | disposition home health service (06) | DRG 638 ==
LOC: E/R 15:26 → 5EC 19:53
PROVIDERS: ADMIT Family Medicine; ATTEND Family Medicine
PROC: 02HV33Z Insertion of Infusion Device into Superior Vena Cava, Percutaneous Approach (ICD-10-PCS; principal; 2018-10-17)
DX: E11.621 Type 2 diabetes mellitus with foot ulcer (principal); M86.9 Osteomyelitis, unspecified; E11.69 Type 2 diabetes mellitus with other specified complication; N17.9 Acute kidney failure, unspecified; E11.22 Type 2 diabetes mellitus with diabetic chronic kidney disease; E11.40 Type 2 diabetes mellitus with diabetic neuropathy, unspecified; I12.9 Hypertensive chronic kidney disease with stage 1 through stage 4 chronic kidney disease, or unspecified chronic kidney disease; D63.1 Anemia in chronic kidney disease; E78.5 Hyperlipidemia, unspecified; F32.9 Major depressive disorder, single episode, unspecified; L97.519 Non-pressure chronic ulcer of other part of right foot with unspecified severity; N18.9 Chronic kidney disease, unspecified; S92.531A Displaced fracture of distal phalanx of right lesser toe(s), initial encounter for closed fracture; X58.XXXA Exposure to other specified factors, initial encounter; Z79.82 Long term (current) use of aspirin; Z79.4 Long term (current) use of insulin
CPT/HCPCS: 36415; 36569; 71045; 73630; 73718; 76937; 80048; 80053; 80061; 82040; 82247; 82248; 82962; 83036; 83735; 84075; 84155; 84443; 84450; 84460; 85025; 85610; 85651; 85730; 87070; 93922; 93970; J1815; J2543; J3370; J7050